=== PATIENT | female | born 1940 | race African-American/Black ===

== ENCOUNTER 2017-11-23 09:58 | Outpatient (CLI) | payer MEDICARE | END 2017-11-23 09:59 | disposition home or self-care (01) | LOC: BICULT 09:58 | PROVIDERS: ATTEND Urology | DX: C64.1 Malignant neoplasm of right kidney, except renal pelvis (principal); Z90.5 Acquired absence of kidney | CPT/HCPCS: 71046; 76775 ==

== ENCOUNTER 2018-05-29 11:19 | Outpatient (CLI) | payer MEDICARE | END 2018-05-29 11:20 | disposition home or self-care (01) | LOC: BICULT 11:19 | PROVIDERS: ATTEND Urology | DX: C64.1 Malignant neoplasm of right kidney, except renal pelvis (principal); Q60.2 Renal agenesis, unspecified; R35.0 Frequency of micturition; Z90.5 Acquired absence of kidney | CPT/HCPCS: 36415; 76770; 80048; 80076 ==

== ENCOUNTER 2019-04-05 14:36 | Outpatient (CLI) | payer MEDICARE ==
--- NOTE | 2019-04-05 15:02 | RAD ---
EXAM: Two views chest PROVIDED CLINICAL HISTORY: Malignant neoplasm of right kidney. COMPARISON: 11/08/2016 FINDINGS: Multiple vascular stents again overlie the right axillary and subclavian vessels. Vascular stent agai n overlies the proximal left upper extremity. There is a central venous catheter/graft overlying the left upper chest and left axillary region not seen on prior study. The cardiac silhouette and pulmonary vasculature remain within normal limits. The lungs are clear. De generative changes are again seen in the spine. No other interval change. IMPRESSION: No acute cardiopulmonary process.
--- NOTE | 2019-04-05 15:44 | CT ---
EXAM: Abdomen and pelvic CT scan without contrast: HISTORY: Malignant neoplasm right kidney COMPARISON: 04/10/2012 FINDINGS: Probable small hiatal hernia. Minimal linear stranding bilaterally evidence for chronic change. Liver: Unremarkable. Gallbladder:Unremarkable. Pancreas:Unremarkable Spleen:Unremarkable. Adrenal glands:Unremarkable left adrenal gland nonvisualized right adrenal gland Kidneys:Status post right nephrectomy. Small left kidney measuring 0.6 cm in length. No renal hydronephrosis. No renal calculus. This kidney is smaller than on prior study. Small left renal cysts. No evidence for bowel obstruction. No CT evidence for acute appendicitis. The urinary bladder is unremarkable. Prominent vascular calcifications. Moderate calcifications in the uterus. Moderate fecal material throughout the colon including a minimally dilated rectum. No abscess, adenopathy, or abnormal fluid collection within the abdomen or pelvis. IMPRESSION: Status post right nephrectomy with a small left kidney without hydronephrosis with several small left renal cyst. No evidence of other significant acute process in the abdomen or pelvis. Other findings as above.
[2019-04-05 16:02] LABS: ALT (SGPT) 13 U/L (8-55); AST (SGOT) 17 U/L (5-34); Alkaline Phosphatase 91 U/L (40-150); Anion Gap 15 mmol/L (10-20); BUN (Urea Nitrogen) 20 mg/dL (9.8-20.1); Bilirubin, Total 0.4 mg/dL (0.2-1.2); Calc. Creatinine Clearance 0 mL/min (70-130); Calcium 8.7 mg/dL (7.8-10.44); Carbon Dioxide 32 mmol/L (23-31); Chloride 94 mmol/L (98-107); Estimated GFR-MDRD 14; Globulin 2.9 g/dL (2.4-3.5); Glucose 146 mg/dL (83-110); Potassium 4.4 mmol/L (3.5-5.1); Protein, Total 6.9 g/dL (6.0-8.3); Sodium 137 mmol/L (136-145)
[2019-04-05 16:10] LABS: Bilirubin Negative (Negative); Blood, Urine Negative (Negative); Glucose, Urine (Dipstick) Negative (Negative); Leukocyte Moderate (Negative); Nitrite Negative (Negative); Protein, Urine (Dipstick) 100 mg/dL (Neg-Trace); Urobilinogen 0.2 mg/dL (Less than 2)
[2019-04-05 16:24] LABS: Clarity CLEAR (Clear)
[2019-04-05 16:27] LABS: RBC/HPF None Seen HPF (0-3)
[2019-04-05 16:28] LABS: Bacteria/HPF 3+ HPF (None Seen); Yeast-Budding Rare HPF (None Seen)
== END 2019-04-05 14:37 | disposition home or self-care (01) ==
LOC: CT 14:36
PROVIDERS: ATTEND Urology
DX: C64.1 Malignant neoplasm of right kidney, except renal pelvis (principal); Q60.0 Renal agenesis, unilateral; Z99.2 Dependence on renal dialysis; Z90.5 Acquired absence of kidney; N27.0 Small kidney, unilateral; N28.1 Cyst of kidney, acquired; I70.90 Unspecified atherosclerosis; N85.8 Other specified noninflammatory disorders of uterus; R19.5 Other fecal abnormalities
CPT/HCPCS: 71046; 74176; 80053; 81003; 81015; 87086